=== PATIENT | male | born 1985 | race Caucasian/White ===

== ENCOUNTER 2019-10-20 12:57 | Emergency (ER) | payer BC, OTHER ==
[~2019-10-20] VITALS: Ht 177.8 cm; Wt 111.1 kg
[2019-10-20 13:06] VITALS: BP 136/90
[2019-10-20] MEDS ORDERED: IBUPROFEN 600600 M1 PO (13:48)
== END 2019-10-20 13:50 | disposition home or self-care (01) ==
LOC: ER 12:57
DX: M25.512 Pain in left shoulder (principal)